=== PATIENT | female | born 1970 ===

== ENCOUNTER 2024-08-06 07:46 | Day surgery (SDC) | payer OTHER ==
[2024-08-06] MEDS ORDERED: POVIDONE-IODINE 118 ML BOTT TOP ONE (08:49)
[2024-08-06] MEDS ORDERED: KETOROLAC TROMETHAMINE 30 MG VIAL IV ONE (10:30)
[2024-08-06] MEDS ORDERED: MORPHINE SULFATE 4 MG/ML VIAL IV PRN (10:30)
[2024-08-06] MEDS ORDERED: MORPHINE SULFATE 2 MG/ML CARTRIDGE IV ONE (12:50)
== END 2024-08-06 16:55 | disposition home or self-care (01) ==
LOC: CIR.AMB 07:46
PROVIDERS: ATTEND Obstetrics & Gynecology
DX: N84.0 Polyp of corpus uteri (principal); N93.8 Other specified abnormal uterine and vaginal bleeding; D25.9 Leiomyoma of uterus, unspecified; I10 Essential (primary) hypertension; E03.9 Hypothyroidism, unspecified; F32.A Depression, unspecified; H52.209 Unspecified astigmatism, unspecified eye; H52.10 Myopia, unspecified eye